=== PATIENT | male | born 1945 | race Asian ===

== ENCOUNTER 2018-06-16 14:31 | Emergency (ER) | payer OTHER ==
[~2018-06-16] VITALS: Ht 170.2 cm; Wt 72.7 kg
[~2018-06-16 14:31] MED LIST: MULT-1398 PO
[2018-06-16 14:50] VITALS: BP 124/87
--- NOTE | 2018-06-16 15:06 | NUR ---
PATIENT PRESENTS TO ED WITH ACCOMPANIED BY FAMILY LACERATION REPAIRED 05/26/2018 IN [facility] TO LEFT HELIX SUTURES INTACT, NO DRAINAGE . DENIES N/V/D; SKIN IS PINK/WARM/DRY; AAOX4 WITH EVEN AND STEADY GAIT; LUNGS CLEAR BL; HR EVEN AND REGULAR; PT DENIES ANY FEVER, CP, SOB, OR COUGH AT THIS TIME; PATIENT STATES PAIN OF 0/10 AT THIS TIME; VSS; PATIENT POSITIONED FOR COMFORT; HOB ELEVATED; BEDRAILS UP X2; BED DOWN. ER MD MADE AWARE OF PT STATUS.
--- NOTE | 2018-06-16 15:49 | NUR ---
PT AMBULATED OUT OF THE ER WITH FAMILY MEMBER; STATED THEY ARE PRESSED FOR TIME. MD NOTIFED.
== END 2018-06-16 15:49 | disposition left against medical advice (07) ==
LOC: MED 14:31
DX: S01.312D Laceration without foreign body of left ear, subsequent encounter (principal); X58.XXXD Exposure to other specified factors, subsequent encounter; Z53.21 Procedure and treatment not carried out due to patient leaving prior to being seen by health care provider